=== PATIENT | female | born 1970 | race Asian ===

== ENCOUNTER 2023-12-30 12:38 | Emergency (ER) | payer MEDICAID ==
[~2023-12-30] VITALS: Ht 147.3 cm; Wt 42.7 kg
[~2023-12-30 12:38] MED LIST: HYDR-4723 PO; LOSA-381 PO; SIMV-260 PO
[2023-12-30] MEDS: CEPHALEXIN MONOHYDRATE 500 MG CAPSULE PO ONE (14:10)
[2023-12-30] MEDS ORDERED: CEPH-558 PO (14:12)
[2023-12-30 14:28] VITALS: BP 138/84; PULSE 79; RESP 16; TEMP 98.2
== END 2023-12-30 14:30 | disposition home or self-care (01) ==
LOC: EMS 12:38
DX: L03.031 Cellulitis of right toe (principal); E78.00 Pure hypercholesterolemia, unspecified; I10 Essential (primary) hypertension; Z90.49 Acquired absence of other specified parts of digestive tract
CPT/HCPCS: 99283